=== PATIENT | male | born 1975 | race Caucasian/White ===

== ENCOUNTER 2025-02-07 17:44 | Emergency (ER) | payer BC, SELFPAY ==
--- OUTSIDE RECORDS SUMMARY | 2025-02-07 17:45 | XMS_ITS | Clinical Summary ---
Author Organization [employer] Address [address] [place] [id number] Care Team Providers Care Product Demonstrator Name Role Phone Derik Govea MD Primary Care Provider Allergies No known active allergies Medications albuterol HFA (PRO-AIR; VENTOLIN; PROVENTIL) 90 mcg/actuation inhalerIndicati ons:Wheeze Inhale 1-2 Puffs by mouth every 4 hours if needed for Shortness of Breath 1st choice. 1 Each 1 3 Active fluticasone propion-salmete roL (ADVAIR) 100-50 mcg/dose diskus inhalerIndicati ons:Wheeze INHALE ONE PUFF BY MOUTH EVERY MORNING AND INHALE ONE PUFF EVERY EVENING 180 Each 3 4 Active Active Problems Problem Noted Date Diagnosed Date Elevated blood pressure read ing without diagnosis of hypertension 09/21/2023 Obesity 04/21/2015 Unspecified asthma(493.90) 02/17/2009 Prediabetes Immunizations Immunization Administration Dates Next Due COVID-19 vaccine (Moderna 100mcg/0.5mL) PF, MDV 01/20/2021 COVID-19 vaccine (Pfizer-Bio NTech 30mcg/0.3mL) 12YO+ PEYMAN-SUCROSE PF, MDV 06/13/2022 Influenza Virus, Unspecified 08/13/2013 Influenza, IIV3 (Age >=3 years) 08/27/2012 Influenza, IIV4 09/21/2023, 1,10/23/2019,2016 Influenza, IIV4 (=>6mos) MDV 08/18/2020 Pneumococcal Conj 20-valent (Prevnar 20) 09/21/2023 Pneumococcal Poly,23-Valent (Pneumovax) 10/30/2012 Td (Age >=7 Years) 05/07/2005 Tdap 04/21/2015 Family History Medical History Relation Name Comments Other Father Paul Talley syndrome in his 70's, recovered. Diabetes Neg. 1 Heart Disease Neg. 2 Cancer-prostate Paternal Grandfather Cancer-colon Paternal Grandmother Anesthesia Problem No Family History Relation Name Status Comments Father Neg. 1 Neg. 2 Paternal Grandfather Paternal Grandmother Social History Tobacco Use Types Packs/Day Years Used Date Smoking Tobacco: Never Smokeless Tobacco: Never Tobacco Cessation:Counseling Given: No Alcohol Use Standard Drinks/Week Comments Yes 0 (1 standard drink = 0.6 oz pur e alcohol) socially PHQ-2 Answer Date Recorded PHQ-2 TOTAL SCORE 0 09/21/2023 Social Connections Answer Date Recorded Do you often feel lonely or isolated from those around you? 0 09/21/2023 Financial Resource Strain Answer Date R ecorded Difficulty of Paying Living Expenses 3 09/21/2023 Difficulty of Paying Living Expenses Not on file 09/21/2023 Food Insecurity Answer Date Recorded Do you worry your food will run out before you are able to buy more? 1 09/21/2023 Transportation Needs Answer Date Record ed Does lack of transportation keep you from medica l appointments? 1 09/21/2023 Does lack of transportation keep you from work, meetings or getting things that you need? 1 09/21/2023 Housing Stability Answer Date Recorded What is your housing situation today? 1 09/21/2023 Sex and Gender Information Value Date Recorded Sex Assigned at Not on file Legal Sex Male 5:43 AM FLIGHT ENGINEER HELICOPTER Gender Identity Not on file Sexual Orientation Not on file Obstetrics History Last Filed Vital Signs Vital Sign Reading Time Taken Comments Blood Pressure 138/78 09/21/2023 10:46 AM FLIGHT ENGINEER HELICOPTER Pulse 69 09/21/2023 10:33 AM FLIGHT ENGINEER HELICOPTER Temperature 36.4 C (97.6 F) 04/11/2019 2:29 PM CDT Respiratory Rate - - Oxygen Saturation 97% 09/21/2023 10: 33 AM FLIGHT ENGINEER HELICOPTER Inhaled Oxygen Concentration - - Weight 135.8 kg (299 lb 6.4 oz) 11/09/2 023 10:33 AM FLIGHT ENGINEER HELICOPTER Height 179.8 cm (5' 10.79) 09/21/2023 10:33 AM FLIGHT ENGINEER HELICOPTER Body Mass Index 42.01 09/21/2023 10:33 AM FLIGHT ENGINEER HELICOPTER Plan of Treatment Health Maintenance Due Date Last Done Comments COVID-19 vaccine series ( season) 2024 06/13/2022, 11/08/2021, 01/20/2021 Influenza Vaccine (#1) 2024 , 08/13/2021, 08/18/2020, Additional history exists BMI (ht and wt on same day) for age 18+ 09/21/2024 09/21/2023, 06/13/2022, 02/25/2021, Additional history exists Depression screening for age 12+ 09/21/2024 09/21/2023, 06/13/2022, 02/25/2021, Additional history exists Fecal testing non-DNA (FIT,FOBT,iFOBT) for age 45-75 09/28/2024 09/28/2023, 06/21/2022 Tetanus booster 04/21/2025 04/21/2015, 05/07/2005 Lipids for age 45-75 09/21/2028 09/21/2023, 06/13/2022, 02/25/2021, Additional history exists Tdap Completed 04/21/2015 Hepatitis C screening for age 18-79 Completed 06/13/2022 HIV for age 15-65 Completed 09/21/2023 Pneumococcal series for age 6-49 Aged Out 09/21/2023, 10/30/2012 No longer eligibl e based on patient's age to complete this topic Procedures Procedure Name Priority Date/Time Associated Diagnosis Comments OCCULT BLOOD IFOBT STOOL Routine 09/28/2023 1:51 PM FLIGHT ENGINEER HELICOPTER Screening for colon cancer ANTI HIV 1/2 Routine 09/21/2023 11:12 AM FLIGHT ENGINEER HELICOPTER Encounter for screening for HIV LIPID PANEL W REFLEX MEASURED LDL Routine 09/21/2023 11:12 AM FLIGHT ENGINEER HELICOPTER Hyperlipidemia, unspecified hyperlipidemia type ANTI HCV Routine 06/13/2022 9:30 AM CDT Need for hepatitis C screening test from Last 3 Months or Most Recently Relevant to Health Maintenance Results * OCCULT BLOOD IFOBT STOOL (09/28/2023 1:51 PM FLIGHT ENGINEER HELICOPTER) STOOL BLOOD ,IFOBT Negative Negative 10/11/2023 9:35 AM FLIGHT ENGINEER HELICOPTER [facility] Stool STOOL SPECIMEN / Unknown Non-Blood / Unknown 09/28/2023 1:51 PM FLIGHT ENGINEER HELICOPTER 10/09/2023 1:51 PM FLIGHT ENGINEER HELICOPTER us Derik Govea MD LABORATORY Final Result [facility] [address] [place] [address], [place] [phone] * (ABNORMAL) LIPID PANEL W REFLEX MEASURED LDL (09/21/2023 11:12 AM FLIGHT ENGINEER HELICOPTER) CHOLESTEROL,TOTAL 196 100 - 199 mg/dL 09/21/2023 9:34 PM FLIGHT ENGINEER HELICOPTER [facility] Comment: Cholesterol, Total Reference Ranges Desirable <200 mg/dL Borderline 200-239 mg/dL High >=240 mg/dL TRIGLYCERIDES 137 <150 mg/dL 09/21/2023 9:34 PM FLIGHT ENGINEER HELICOPTER [facility] HDL CHOLESTEROL 40(L) >40 mg/dL 9:34 PM FLIGHT ENGINEER HELICOPTER [facility] NON-HDL CHOLESTEROL 156(H) <145 mg/dl 09/21/2023 9:34 PM FLIGHT ENGINEER HELICOPTER [facility] CHOL/HDL RATIO 4.90(H) <4.50 09/21/2023 9:34 PM FLIGHT ENGINEER HELICOPTER [facility] LDL CHOLESTEROL 129 <=130 mg/dL 09/21/2023 9:34 PM FLIGHT ENGINEER HELICOPTER [facility] VLDL CHOLESTEROL 27 <=30 mg/dL 09/21/2023 9:34 PM FLIGHT ENGINEER HELICOPTER [facility] PROVIDER ORDERED STATUS RANDOM 09/21/2023 9:34 PM FLIGHT ENGINEER HELICOPTER [facility] Blood BLOOD SPECIMEN / Unknown Venipuncture / Unknown 09/21/2023 11:12 AM FLIGHT ENGINEER HELICOPTER 09/21/2023 11:14 AM FLIGHT ENGINEER HELICOPTER Derik Govea MD CHEMISTRY Final Result Performing Organization Address [facility]/ZIP Co de Phone Number [facility] [address] [place] [id number], [place] * ANTI HIV 1/2 (09/21/2023 11:12 AM FLIGHT ENGINEER HELICOPTER) Pathologist [facility] HIV-1/HIV-2 SCREEN Non-Reacti ve Non-Reacti ve 09/21/2023 9:17 PM FLIGHT ENGINEER HELICOPTER [facility] Comment:HIV-1 p24 and HIV-1/ HIV-2 Ab Not Detected. Blood BLOOD SPECIMEN / Unknown Venipuncture / Unknown 09/21/2023 11:12 AM FLIGHT ENGINEER HELICOPTER 09/21/2023 11:14 AM FLIGHT ENGINEER HELICOPTER us Derik Govea MD SEND OUTS Final Result Performing Organization Address [facility] Co de Phone Number [facility] [address] [place] [address], [place] * ANTI HCV (06/13/2022 9:30 AM CDT) [facility] HEPATITIS C ANTIBODY Non-React josette Non-React josette 06/13/2022 6:56 PM CDT [facility] Comment:Antibodies to HCV no t detected; does not exclude the possibility of exposure to HCV. Blood BLOOD SPECIMEN / Unknown Venipuncture / Unknown 06/13/2022 9:30 AM CDT 06/13/2022 9:31 AM CDT us Derik Govea MD SEND OUTS Final Result Performing Organization Address City/[facility]/ZIP Co de Phone Number [facility] [address] [place] [address], [place] from Last 3 Months or Most Recently Relevant to Health Maintenance Insurance [facility] Care Teams Product Demonstrator Relationship Specialty Start Date End Date Derik Govea MD [address] [place] [address] PCP - General 08/24/06
[2025-02-07 17:53] VITALS: BP 165/98; PULSE 86; RESP 18; TEMP 37; O2SAT 95; BMI 42.5
[2025-02-07] MEDS: SIMETHICONE/SOD BICARB/CIT AC 1 EACH GRAN.EF.PK PO ×3 (19:35→20:10)
[2025-02-07 19:40] VITALS: BP 168/115; PULSE 79; RESP 18; O2SAT 98
--- NOTE | 2025-02-07 19:41 | ED.GENADULT ---
HPI - General Adult General Time Seen by Provider: 19:42 Date Seen: 02/07/25 Chief complaint: Nausea/Vomiting Stated complaint: Cant swallow Time Seen by Provider: 02/07/25 19:21 Source: patient and RN notes reviewed Mode of arrival: ambulatory Limitations: no limitations History of Present Illness HPI narrative: This 49-year-old male ingested chicken about 2-230 earlier today, has been done unable to eat or drink anything since then. He felt it impact in his upper throat, maybe has moved down a little. Does not have any significant pain. Is able to breathe and talk normally. He denies any history of heartburn or reflux disease, has not been having any difficulty swallowing prior to this. He has not had a scope before. He has asthma for which he takes Advair but states he has no other known major medical illness. Related Data Home Medications ?Medication ?Instructions ?Recorded ?Confirmed fluticasone 100 mcg-salmeterol 50 1 inh inhalation BID 02/07/25 02/07/25 mcg/dose blistr powdr for inhalation (Advair Diskus) Allergies Allergy/AdvReac Type Severity Reaction Status Date / Time No Known Drug Allergies Allergy Verified 02/07/25 17:59 Review of Systems Narrative: As per HPI. Exam Const: Vital Signs, click to edit/add: Vital Signs - 24 hr 02/07/25 17:53 Temperature 98.6 F Pulse Rate [Pulse Oximeter] 86 Respiratory Rate 18 Blood Pressure [Ri ght Upper Arm] 165/98 H Pulse Oximetry 95 Oxygen Delivery Me thod Room Air 49-year-old male is alert, interactive, no apparent distress, sclera clear, breathing easy on room air, speech normal. Lungs clear, good air entry, no wheezing or crackles. CV regular rate and rhythm, no murmur. He was ambulatory into the ED of his own accord. Documenting provider has reviewed patient's vital signs: yes Course Course ED Course: This 49-year-old male has food bolus impaction with check-in, has been in since about 2-230 p.m. today. Will attempt EZ gas granules to see if that will help him pass this blockage. Nursing staff had already contacted mix house tender to see if any endoscopy staff would be willing to come in. We do not have an emergent endoscopy call schedule and unfortunately there are no supporting staff to come in. Reevaluation(s) Time of Reevaluation #1: 19:45 Reevaluation #1: EZ gas granules were ordered, patient attempted ingesting nose and they came back up through his mouth and nose immediately. Will try a IV placement with sublingual nitroglycerin and glucagon. Nursing staff is working on the IV. Patient understands that we do not have endoscopy coverage tonight nor for the weekend. If the next steps do not work, plan will be to see if [facility] would except him. Time of Reevaluation #2: 20:19 Reevaluation #2: No resolution, did retry EZ gas after nitro and glucagon. Still no resolution of the obstruction. Will call [facility] ED via [place] transfer center. Consultations Consultation #1: Did speak with Dr. Govea from [facility]. He accepts this patient after history is provided. Time: 20:23 Vital Signs Vital signs: Initial Vital Signs Temperature 98.6 F 02/07/25 17:53 Temperature Source Temporal Artery Scan 02/07/25 17:53 Pulse Rate 86 02/07/25 17:53 Respiratory Rate 18 02/07/25 17:53 Blood Pressure 165/98 H 02/07/25 17:53 Blood Pressure Mean 120 H 02/07/25 17:53 Blood Pressure Position Sitting 02/07/25 17:53 Pulse Oximetry 95 02/07/25 17:53 Oxygen Delivery Method Room Air 02/07/25 17:53 Vital Signs Temperature 98.6 F 02/07/25 17:53 Pulse Rate 86 02/07/25 17:53 Respiratory Rate 18 02/07/25 17:53 Blood Pressure 165/98 H 02/07/25 17:53 Pulse Oximetry 95 02/07/25 17:53 Oxygen Delivery Method Room Air 02/07/25 17:53 Temperature 98.6 F 02/07/25 17:53 Pulse Rate 86 02/07/25 17:53 Respiratory Rate 18 02/07/25 17:53 Blood Pressure 165/98 H 02/07/25 17:53 Pulse Oximetry 95 02/07/25 17:53 Oxygen Delivery Method Room Air 02/07/25 17:53 Medications Administered Medications: Discontinued Medications Generic Name Dose Route Start Last Admin Trade Name Freq PRN Reason Stop Dose Admin Glucagon 1 mg 02/07/25 19:40 02/07/25 19:48 Glucagon,Human Recombinant 1 Mg/Ml Vial IV 02/07/25 19:41 1 mg ONCE ONE Administration Nitroglycerin 0.4 mg 02/07/25 19:40 02/07/25 19:48 Nitroglycerin 0.4 Mg Tab.Subl SUBLINGUAL 02/07/25 19:41 0.4 mg ONCE ONE Administration Simethicone/Sodium Bicarb/Citric Ac 1 each 02/07/25 19:32 02/07/25 19:35 Simethicone/Sod Bicarb/Cit Ac 1 Each Gran.Ef.Pk PO 02/07/25 19:33 1 each ONCE ONE Administration Discharge Plan Discharge Clinical Impression: Acute esophageal obstruction Patient Disposition: [facility] Discharge Location: [facility] Condition: Stable Additional Instructions: Proceed to [facility]. Prescriptions: No Action fluticasone propion-salmeterol [Advair Diskus] 100-50 mcg/dose blister with device 1 inh inhalation BID Follow Up/Referrals: Derik Govea MD [Primary Care Provider] -
[2025-02-07] MEDS: GLUCAGON,HUMAN RECOMBINANT 1 MG/ML VIAL IV (19:48)
[2025-02-07] MEDS: NITROGLYCERIN 0.4 MG TAB.SUBL SUBLINGUAL (19:48)
[2025-02-07 19:50] VITALS: BP 173/109; PULSE 81; RESP 18; O2SAT 98
[2025-02-07 20:00] VITALS: BP 169/104; PULSE 76; RESP 18; O2SAT 98
--- OUTSIDE RECORDS SUMMARY | 2025-02-07 20:06 | XMS_ITS | Clinical Summary ---
Author Organization [employer] Address [address] [place] [address] Care Team Providers Care Habilitation Assistant Name Role Phone Derik Govea MD Primary [...] on file Legal Sex Male 5:43 AM SECTION WEAVER Gender Identity Not on file Sexual Orientation Not on file Obstetrics History Last Filed Vital Signs Vital Sign Reading Time Taken Comments Blood Pressure 138/78 09/21/2023 10:46 AM SECTION WEAVER Pulse 69 09/21/2023 10:33 AM SECTION WEAVER Temperature 36.4 C (97.6 F) 04/11/2019 2:29 PM CDT Respiratory Rate - - Oxygen Saturation 97% 09/21/2023 10: 33 AM SECTION WEAVER Inhaled Oxygen Concentration - - Weight 135.8 kg (299 lb 6.4 oz) 11/09/2 023 10:33 AM SECTION WEAVER Height 179.8 cm (5' 10.79) 09/21/2023 10:33 AM SECTION WEAVER Body Mass Index 42.01 09/21/2023 10:33 AM SECTION WEAVER Plan of Treatment Health Maintenance Due Date [...] BLOOD IFOBT STOOL Routine 09/28/2023 1:51 PM SECTION WEAVER Screening for colon cancer ANTI HIV 1/2 Routine 09/21/2023 11:12 AM SECTION WEAVER Encounter for screening for HIV LIPID PANEL W REFLEX MEASURED LDL Routine 09/21/2023 11:12 AM SECTION WEAVER Hyperlipidemia, unspecified hyperlipidemia type ANTI HCV Routine 06/13/2022 9:30 AM CDT Need for hepatitis C screening test from Last 3 Months or Most Recently Relevant to Health Maintenance Results * OCCULT BLOOD IFOBT STOOL (09/28/2023 1:51 PM SECTION WEAVER) STOOL BLOOD ,IFOBT Negative Negative 10/11/2023 9:35 AM SECTION WEAVER [facility] Stool STOOL SPECIMEN / Unknown Non-Blood / Unknown 09/28/2023 1:51 PM SECTION WEAVER 10/09/2023 1:51 PM SECTION WEAVER us Derik Govea MD LABORATORY Final Result [facility] [address] [place] [address], [place] [phone] * (ABNORMAL) LIPID PANEL W REFLEX MEASURED LDL (09/21/2023 11:12 AM SECTION WEAVER) CHOLESTEROL,TOTAL 196 100 - 199 mg/dL 09/21/2023 9:34 PM SECTION WEAVER [facility] Comment: Cholesterol, Total Reference Ranges Desirable <200 mg/dL Borderline 200-239 mg/dL High >=240 mg/dL TRIGLYCERIDES 137 <150 mg/dL 09/21/2023 9:34 PM SECTION WEAVER [facility] HDL CHOLESTEROL 40(L) >40 mg/dL 9:34 PM SECTION WEAVER [facility] NON-HDL CHOLESTEROL 156(H) <145 mg/dl 09/21/2023 9:34 PM SECTION WEAVER [facility] CHOL/HDL RATIO 4.90(H) <4.50 09/21/2023 9:34 PM SECTION WEAVER [facility] LDL CHOLESTEROL 129 <=130 mg/dL 09/21/2023 9:34 PM SECTION WEAVER [facility] VLDL CHOLESTEROL 27 <=30 mg/dL 09/21/2023 9:34 PM SECTION WEAVER [facility] PROVIDER ORDERED STATUS RANDOM 09/21/2023 9:34 PM SECTION WEAVER [facility] Blood BLOOD SPECIMEN / Unknown Venipuncture / Unknown 09/21/2023 11:12 AM SECTION WEAVER 09/21/2023 11:14 AM SECTION WEAVER Derik Govea MD CHEMISTRY Final Result Performing Organization Address [facility]/ZIP Co de Phone Number [facility] [address] [place] [id number], [place] * ANTI HIV 1/2 (09/21/2023 11:12 AM SECTION WEAVER) Pathologist [facility] HIV-1/HIV-2 SCREEN Non-Reacti ve Non-Reacti ve 09/21/2023 9:17 PM SECTION WEAVER [facility] Comment:HIV-1 p24 and HIV-1/ HIV-2 Ab Not Detected. Blood BLOOD SPECIMEN / Unknown Venipuncture / Unknown 09/21/2023 11:12 AM SECTION WEAVER 09/21/2023 11:14 AM SECTION WEAVER us Derik Govea MD SEND OUTS Final Result Performing Organization Address [facility] Co de Phone Number [facility] [address] [place] [address], [place] * ANTI HCV (06/13/2022 9:30 AM CDT) [facility] HEPATITIS C ANTIBODY Non-React josette Non-React josette 06/13/2022 6:56 PM CDT [facility] Comment:Antibodies to HCV no t detected; does not exclude the possibility of exposure to HCV. Blood BLOOD SPECIMEN / Unknown Venipuncture / Unknown 06/13/2022 9:30 AM CDT 06/13/2022 9:31 AM CDT us Derik Govea MD SEND OUTS Final Result Performing Organization Address City/[facility]/ZIP Co de Phone Number [facility] [address] [place] [address], [place] from Last 3 Months or Most Recently Relevant to Health Maintenance Insurance [facility] Care Teams Habilitation Assistant Relationship Specialty Start Date End Date Derik Govea MD [address] [place] [address] PCP - General 08/24/06
== END 2025-02-07 20:38 | disposition short-term general hospital (02) ==
PROVIDERS: Emergency Provider Family Medicine; PCP Family Medicine
DX: K22.2 Esophageal obstruction (principal)
CPT/HCPCS: 99283; 99285; A9270; J1610